=== PATIENT | male | born 1945 | race Caucasian/White ===

== ENCOUNTER → 2017-05-27 | Outpatient (CLI) | payer MEDICARE ==
--- NOTE | 2017-06-05 11:51 | ECHO ---
DATE OF SERVICE: 05/27/2017 INDICATIONS: A 71-year-old male with coronary artery disease and shortness of breath, elected for an echocardiographic study to evaluate systolic and diastolic function. Any structural or valvular heart disease. FINDINGS: 1. Study quality was fair. 2. Underlying rhythm is sinus rhythm. 3. Overall, EF is depressed. EF was 30-35%, anteroseptal akinesia noted, lateral hypokinesia seen, minimal LVH. LV dimensions were increased at 7 cm in end diastolic dimension with LVH that is moderate. 4. RV size and EF were normal. 5. Both atria were minimally dilated. 6. Mitral valve showed mild mitral regurgitation. No suspected stenosis, grade 1 diastolic dysfunction was obvious with E to A reversal. Mitral valve gradient was 3 mmHg. 7. LVOT dimensions were increased. 8. Aortic valve velocity was 0.8 meter per second with aortic valve area normal around 3 cm2. 9. Mild tricuspid regurgitation. PA pressure was 30-35 mmHg. 10. No visible pericardial effusion. 11. RV size and EF were normal. 12. Thickened interatrial septum with bouncing. 13. No pericardial effusion. 14. Inferior vena cava was not visualized. IMPRESSION: 1. LV dysfunction with EF around 35%, anteroseptal akinesia, lateral hypokinesia, LVH with dilated LV cavity. No LVOT obstruction. 2. RV size and EF were normal. 3. Both atria showed moderate dilatation. 4. Trace mitral regurgitation, no stenosis. 5. Grade 1 diastolic dysfunction. 6. Mild aortic insufficiency, no stenosis. 7. Upper limit of PA pressure around 35 mmHg. 8. No pericardial effusion noted. 9. The rhythm is sinus rhythm. Lauri Castillo MD DR: JENNIFER/sophie JOB# [id number]
== END | disposition home or self-care (01) ==
LOC: RT 12:57
PROVIDERS: ATTEND Internal Medicine
DX: I08.0 Rheumatic disorders of both mitral and aortic valves (principal); I25.10 Atherosclerotic heart disease of native coronary artery without angina pectoris
CPT/HCPCS: 93307